=== PATIENT | male | born 1990 | race Caucasian/White ===

== ENCOUNTER 2018-08-03 09:14 | Observation (INO) | payer BC ==
[~2018-08-03] VITALS: Ht 182.9 cm; Wt 139.4 kg
[~2018-08-03 09:14] MED LIST: BACITRACIN OINT 500U/GM, 15 GM ONE; EPINEPHRINE 1 MG/ML, 1ML ONE; EPINEPHRINE TOPICAL SOLN 1 MG/ML, 30ML ONE; FLUORESCEIN SODIUM 500 MG/5 ML ONE; LIDOCAINE 1%, 20ML ONE; OXYMETAZOLINE NASAL SPRAY 0.05%, 15ML ONE
[2018-08-03 09:49] VITALS: BP 123/85
[2018-08-03] MEDS ORDERED: LACTATED RINGERS 1,000 ML IV SCH (09:56)
[2018-08-03] MEDS ORDERED: FENTANYL PF 250 MCG/5ML ONE (09:57)
[2018-08-03] MEDS ORDERED: MIDAZOLAM 1 MG/ML, 2ML ONE (09:57)
[2018-08-03] MEDS ORDERED: CALC-545 PO (10:00)
[2018-08-03] MEDS ORDERED: NAPR220C2 PO (10:00)
[2018-08-03] MEDS ORDERED: ACET325T14 PO (10:00)
[2018-08-03] MEDS ORDERED: BACI1TAB3 PO (10:00)
[2018-08-03] MEDS ORDERED: MULT1TAB53 PO (10:00)
[2018-08-03] MEDS ORDERED: MELA10TA3 PO (10:00)
[2018-08-03] MEDS ORDERED: GABAPENTIN 300 MG CAPSULE PO STA (10:01)
[2018-08-03] MEDS ORDERED: ACETAMINOPHEN 500 MG TABLET PO STA (10:01)
[2018-08-03] MEDS ORDERED: hydrALAzine 20 MG/ML, 1ML IV PRN (10:30)
[2018-08-03] MEDS ORDERED: HYDROmorphone 2 MG/ML, 1ML IVPush PRN (10:30)
[2018-08-03] MEDS ORDERED: PLEASE ENTER ALLERGIES MC SCH (10:30)
[2018-08-03] MEDS ORDERED: MEPERIDINE/PF 25MG/0.5ML IVPush PRN (10:30)
[2018-08-03] MEDS ORDERED: PROMETHAZINE 25 MG/ML, 1ML IV PRN (10:30)
[2018-08-03] MEDS ORDERED: OXYcodone 5 MG/5 ML ORAL.SOL UDC PO PRN (10:30)
[2018-08-03] MEDS ORDERED: METOPROLOL 1 MG/ML, 5ML IV PRN (10:30)
[2018-08-03] MEDS ORDERED: PROCHLORPERAZINE 5 MG/ML, 2ML IV PRN (10:30)
[2018-08-03] MEDS ORDERED: HALOPERIDOL 5 MG/ML IV PRN (10:30)
[2018-08-03] MEDS ORDERED: ESMOLOL 100 MG/10 ML ONE (10:33)
[2018-08-03] MEDS ORDERED: CEFAZOLIN 1,000 MG ONE (13:10)
[2018-08-03] MEDS ORDERED: DEXAMETHASONE 4 MG/ML, 1ML ONE (13:10)
[2018-08-03] MEDS ORDERED: SUCCINYLCHOLINE 20 MG/ML, 10ML ONE (13:10)
[2018-08-03] MEDS ORDERED: ONDANSETRON 2MG/ML, 2ML ONE (13:10)
[2018-08-03] MEDS ORDERED: NEOSTIGMINE 1 MG/ML, 10ML ONE (13:10)
[2018-08-03] MEDS ORDERED: GLYCOPYRROLATE 0.2MG/1ML, 5ML ONE (13:10)
[2018-08-03] MEDS ORDERED: ROCURONIUM 10MG/ML,5ML ONE (13:10)
[2018-08-03] MEDS ORDERED: PROPOFOL 10 MG/ML, 20ML ONE (13:10)
[2018-08-03] MEDS ORDERED: OXYcodone 5 MG/5 ML ORAL.SOL UDC ONE (13:31)
[2018-08-03] MEDS ORDERED: FENTANYL PF 100 MCG/2ML ONE (13:31)
[2018-08-03] MEDS: FENTANYL PF 100 MCG/2ML IV PRN ×4 (13:35→14:15)
[2018-08-03] MEDS: LABETALOL 5MG/ML, 20ML IV PRN ×2 (13:45→14:05)
[2018-08-03] MEDS ORDERED: hydrALAzine 20 MG/ML, 1ML ONE (14:09)
[2018-08-03] MEDS ORDERED: HYDROcodone/APAP 5/325 TABLET PO PRN (16:00)
[2018-08-03] MEDS ORDERED: ACETAMINOPHEN 650 MG SUPP PR PRN (16:00)
[2018-08-03] MEDS: CEFAZOLIN PMX 2GM/50ML 50 ML IVPB SCH (18:16)
[2018-08-03] MEDS: LACTATED RINGERS 1,000 ML IV SCH (18:17)
[2018-08-03] MEDS: ACETAMINOPHEN 325 MG TABLET PO PRN (19:20)
[2018-08-03 19:37] VITALS: BP 113/63
[2018-08-03] MEDS ORDERED: ONDANSETRON 2MG/ML, 2ML IVPush PRN (21:20)
[2018-08-03] MEDS ORDERED: MORPHINE SULFATE 4 MG/ML, 1ML IVPush PRN (21:20)
[2018-08-04 00:01] VITALS: BP 108/59
[2018-08-04] MEDS: LACTATED RINGERS 1,000 ML IV SCH (02:25)
[2018-08-04] MEDS: CEFAZOLIN PMX 2GM/50ML 50 ML IVPB SCH (02:25)
[2018-08-04 04:12] VITALS: BP 110/57
[2018-08-04] MEDS: ACETAMINOPHEN 325 MG TABLET PO PRN (07:56)
[2018-08-04 08:07] VITALS: BP 107/66
[2018-08-04] MEDS ORDERED: SODIUM CHLORIDE 0.9% IVBOLUS ONE (09:00)
[2018-08-04] MEDS ORDERED: SODI1PAC12 NS (09:37)
[2018-08-04 13:18] VITALS: BP 126/61
== END 2018-08-04 13:36 | disposition home or self-care (01) ==
LOC: OR 09:14 → 4NOR 15:15 → OR 15:23 → DCLOUNGE 08-04 13:30
PROVIDERS: ADMIT Otolaryngology; ATTEND Otolaryngology
DX: J32.9 Chronic sinusitis, unspecified (principal); J34.2 Deviated nasal septum; J34.3 Hypertrophy of nasal turbinates
CPT/HCPCS: 30520; 31240; 31257; 31267; 88304; 88311; 96365; 96366; 96375; G0378; J0171; J0330; J0360; J0690; J1100; J2250; J2270; J2405; J2704; J2710; J3010; J3490; J7030; J7120